=== PATIENT | male | born 1965 | race Caucasian/White ===

== ENCOUNTER 2017-11-01 17:21 | Emergency (ER) | payer BC ==
[~2017-11-01] VITALS: Ht 180.3 cm; Wt 99.8 kg
[2017-11-01] MEDS ORDERED: GABA-536 PO (17:36)
[2017-11-01] MEDS ORDERED: OXYCODONE HCL 15 MG PO (17:36)
--- NOTE | 2017-11-01 18:20 | NUR ---
PATIENT WAS SEEN BY . NATALIE IN PROGRESS.....
--- NOTE | 2017-11-01 19:06 | NUR ---
AWAITING XRAY RESULTS. hANDOFF REPORT GIVEN TO CHRISTINE ONEAL
--- NOTE | 2017-11-01 19:34 | NUR ---
Patient discharged to home in stable conditon. Written and verbal after care instructions given. Patient verbalizes understanding of instructions. Patient ambulated out of ER with crutches, splint in place, CMS, VSS, all belongings taken, no acute signs of distress.
[2017-11-01 19:37] VITALS: BP 164/106
== END 2017-11-01 19:38 | disposition home or self-care (01) ==
LOC: ER 17:31
DX: S92.502A Displaced unspecified fracture of left lesser toe(s), initial encounter for closed fracture (principal); F17.210 Nicotine dependence, cigarettes, uncomplicated; F12.10 Cannabis abuse, uncomplicated; Z88.5 Allergy status to narcotic agent; Z79.891 Long term (current) use of opiate analgesic; Z79.899 Other long term (current) drug therapy; W19.XXXA Unspecified fall, initial encounter; Y93.89 Activity, other specified; Y92.89 Other specified places as the place of occurrence of the external cause; Y99.8 Other external cause status
CPT/HCPCS: 73630; A4663